=== PATIENT | female | born 1950 | race Caucasian/White ===

== ENCOUNTER 2017-01-26 07:46 | Emergency (ER) | payer OTHER ==
[~2017-01-26] VITALS: Ht 160 cm; Wt 70.0 kg
[2017-01-26 07:49] VITALS: Ht 160 cm; Wt 70.0 kg
[2017-01-26] MEDS ORDERED: TRAM50TA2 PO (08:23)
--- NOTE | 2017-01-26 08:32 | ERD ---
ER Documentation Chief Complaint Date/Time DATE: 01/26/17 TIME: 08:25 Chief Complaint left shoulder/arm pain states after recieving pneuomina shot. HPI Vision is a 66-year-old female who presents to the emergency department with left shoulder pain 2 weeks. Patient states the pain started immediately after receiving the pneumonia vaccination 2 weeks ago. Patient states the pain is localized to the site of where she received vaccination. Patient denies any redness or swelling to the affected site. Patient states she is unable to extend her shoulder secondary to pain. Patient states that she has not seen her primary care physician twice who did also order x-rays which were negative. She was advised to consider physical therapy however she states that she is unable to go to physical therapy secondary to taking care of her sister. Patient states she has been doing some stretching exercises at home. Patient has been taking naproxen for symptoms with some alleviation. Patient denies any recent falls or trauma. Patient denies any fevers, chills, nausea, vomiting , chest pain, shortness of breath, diaphoresis. ROS All systems reviewed and are negative except as per history of present illness. Medications Home Meds Active Scripts Tramadol HCl (Tramadol HCl) 50 Mg Tablet, 50 MG PO Q4 Y for PAIN, #20 TAB Prov:WALI BARRAZA PA-C 01/26/17 Allergies Allergies: Coded Allergies: No Known Allergy (Unverified , 01/26/17) PMhx/Soc History of Surgery: Yes (HYSTERECTOMY ) Anesthesia Reaction: No Hx Neurological Disorder: No Hx Respiratory Disorders: No Hx Cardiac Disorders: No Hx Psychiatric Problems: No Hx Miscellaneous Medical Probl: No Hx Alcohol Use: No Hx Substance Use: No Hx Tobacco Use: No Smoking Status: Never smoker FmHx Family History: No diabetes Physical Exam Vitals Vital Signs Date Time Temp Pulse Resp B/P Pulse Ox O2 Delivery O2 Flow Rate FiO2 01/26/17 07:49 98.1 90 18 140/72 96 Physical Exam GENERAL: Well-developed, well-nourished female. Appears in no acute distress. HEAD: Normocephalic, atraumatic. EYES: Pupils are equally reactive bilaterally. EOMs grossly intact. No conjunctival erythema. NECK: Supple. No meningismus. Normal range of motion of the neck. LUNG: Clear to auscultation bilaterally. No rhonchi, wheezing, rales or coarse breath sounds. HEART: Regular rate and rhythm. No murmurs, rubs or gallops. BACK: No midline tenderness. EXTREMITIES: Equal pulses bilaterally. No peripheral clubbing, cyanosis or edema. No unilateral leg swelling. NEUROLOGIC: Alert and oriented. Moving all four extremities without any difficulty. Normal speech. Steady gait. SKIN: Normal color. Warm and dry. No rashes or lesions. LEFT SHOULDER/ARM: No deformity, erythema, ecchymosis or swelling. Decreased active range of motion, normal passive range of motion. Slightly tender to palpation of the anterior shoulder. Nontender to palpation of the distal humerus, elbow, forearm. Full range of motion of the elbow and wrist.. Sensation intact to light touch. Neurovascularly intact. (Able to give thumbs up , make an ok sign, cross digits 2 and 3, thumb to pinky opposition. 2+ RP.) No snuffbox tenderness. Procedures/MDM MEDICAL DECISION MAKING: This is a 66-year-old female who presents with left shoulder and arm pain 2 weeks. Patient states the pain started immediately after receiving the pneumonia vaccination. Patient reports negative x-rays. Patient Denied any chest pain, shortness of breath, diaphoresis or loss of consciousness. She denied any cardiac history. Vital signs were reviewed. Patient was afebrile. Given that patient recently had x-ray imaging obtained, and had no additional falls or trauma, no additional x-ray imaging was obtained today. Physical exam findings did demonstrate decreased active range of motion of the left shoulder, normal active range of motion. Given these findings, the patient's presentation is most consistent with adhesive capsulitis. Patient was advised that she will likely benefit from physical therapy. Patient was advised she should follow-up with her primary care physician for referral to physical therapy. Patient was also advised that she should follow-up with an commissions specialist for further management of her symptoms. Patient may also need an MRI on an outpatient basis for further determination of her pain including any possible tendon or ligament injuries. Unable to rule out ligament or tendon injuries at this time. I have a much lower clinical concern for shoulder dislocation, humerus fracture , clavicle fracture, scaphoid fracture, septic joint, osteomyelitis, rheumatoid arthritis, osteoarthritis, brachial plexus injury or compartment syndrome. Unable to rule any ligament or tendon injuries. PRESCRIPTIONS: Tramadol Continue naproxen for pain and inflammation. DISCHARGE: At this time, patient is stable for discharge and outpatient management. RICE therapy and ROM exercises were advised to avoid stiffness. I have instructed the patient to follow-up with his/her primary care physician in 1-2 days. I have discussed with the patient the possibility of needing to see an commissions specialist for further workup and imaging if the pain persists. I have instructed the patient to promptly return to the ER for any new or worsening symptoms including increased pain, swelling, redness, warmth or fever. The patient and/or family expressed understanding of and agreement with this plan. All questions were answered. Home care instructions were provided. Departure Diagnosis: Primary Impression: Left shoulder pain Chronicity: unspecified Qualified Code: M25.512 - Left shoulder pain, unspecified chronicity Condition: Stable Patient Instructions: Shoulder Pain (Uncertain Cause) Referrals: [facility] YOU HAVE RECEIVED A MEDICAL SCREENING EXAM AND THE RESULTS INDICATE THAT YOU DO NOT HAVE A CONDITION THAT REQUIRES URGENT TREATMENT IN THE EMERGENCY DEPARTMENT. FURTHER EVALUATION AND TREATMENT OF YOUR CONDITION CAN WAIT UNTIL YOU ARE SEEN IN YOUR DOCTORS OFFICE WITHIN THE NEXT 1-2 DAYS. IT IS YOUR RESPONSIBILITY TO MAKE AN APPOINTMENT FOR [facility]. IF YOU HAVE A PRIMARY DOCTOR --you should call your primary doctor and schedule an appointment IF YOU DO NOT HAVE A PRIMARY DOCTOR YOU CAN CALL OUR PHYSICIAN REFERRAL HOTLINE AT IF YOU CAN NOT AFFORD TO SEE A PHYSICIAN YOU CAN CHOSE FROM THE FOLLOWING [facility] [address] [facility]. [facility] [address] [facility] [facility] [address] [facility] [facility] [address] [facility]. [facility] [address] [facility]. [facility]. [address] [facility]. [facility] YOU HAVE RECEIVED A MEDICAL SCREENING EXAM AND THE RESULTS INDICATE THAT YOU DO NOT HAVE A CONDITION THAT REQUIRES URGENT TREATMENT IN THE EMERGENCY DEPARTMENT. FURTHER EVALUATION AND TREATMENT OF YOUR CONDITION CAN WAIT UNTIL YOU ARE SEEN IN YOUR DOCTORS OFFICE WITHIN THE NEXT 1-2 DAYS. IT IS YOUR RESPONSIBILITY TO MAKE AN APPOINTMENT FOR [facility]. IF YOU HAVE A PRIMARY DOCTOR --you should call your primary doctor and schedule and appointment IF YOU DO NOT HAVE A PRIMARY DOCTOR YOU CAN CALL OUR PHYSICIAN REFERRAL HOTLINE AT . IF YOU CAN NOT AFFORD TO SEE A PHYSICIAN YOU CAN CHOSE FROM THE FOLLOWING [facility] INSTITUTIONS: [facility] [address] [place] [address] [facility] [address] [place] [address] [facility] [address] [place] [address] [facility] Hours: Mon-Fri 9:00 AM - 5:00 PM Additional Instructions: Call your primary care doctor TOMORROW for an appointment during the next 1-2 days.See the doctor sooner or return here if your condition worsens before your appointment time. Unable to rule out any ligament or tendon injuries at this time. Patient advised that she may need to obtain an MRI on an outpatient basis. Patient advised that she may also need to follow-up with an commissions specialist given that her pain has persisted despite negative x-rays. Physical therapy advised. WALI BARRAZA PA-C January 26, 2017 08:31 WALI BARRAZA PA-C January 26, 2017 08:31
== END 2017-01-26 09:00 | disposition home or self-care (01) ==
LOC: FTE 07:46
DX: M25.512 Pain in left shoulder (principal)
CPT/HCPCS: 99283